=== PATIENT | female | born 1975 | race Caucasian/White ===

== ENCOUNTER → 2024-11-26 | Outpatient (CLI) | payer BC, OTHER, SELFPAY ==
[2024-11-26 11:49] LABS: Basophils # (Auto) 0.1 Thou/mm3 (0.0-0.2); Basophils % (Auto) 1 % (0-2.5); Eosinophils # (Auto) 0.1 Thou/mm3 (0.0-0.5); Eosinophils % (Auto) 1 % (0-10); Hematocrit 39.6 % (36.0-46.0); Hemoglobin 14.1 g/dL (12.0-16.0); Immature Granulocytes % (Auto) 0 % (0-0); Immature Granulocytes Auto 0.03 Thou/mm3 (0.00-0.00); Lymphocytes # (Auto) 2.4 Thou/mm3 (1.0-4.8); Lymphocytes % (Auto) 26 % (10-50); Mean Corpuscular HGB Conc 35.6 g/dl (31.0-37.0); Mean Corpuscular Hemoglobin 31.8 pg (25.0-35.0); Mean Corpuscular Volume 89 fL (80-100); Monocytes # (Auto) 0.5 Thou/mm3 (0.0-0.8); Monocytes % (Auto) 6 % (0-12); Neutrophils # (Auto) 6.2 Thou/mm3 (1.8-7.7); Neutrophils % (Auto) 67 % (37-80); Nucleated Red Blood Cell % 0 /100 WBC (0); Platelet Count 225 Thou/mm3 (140-440); RDW Standard Deviation 40.3 fL (36.4-46.3); Red Blood Count 4.43 Miln/mm3 (4.00-5.20); White Blood Count 9.3 Thou/mm3 (3.6-11.0)
[2024-11-26 12:15] LABS: Alanine Aminotransferase 22 U/L (10-49); Albumin, Serum 4.3 gm/dL (3.5-5.0); Albumin/Globulin Ratio 1.9 (1.2-2.2); Alkaline Phosphatase 55 U/L (46-116); Anion Gap 7 (7-16); Aspartate Amino Transferase 21 U/L (0-34); BUN/Creatinine Ratio 17 Ratio (12-20); Bilirubin,Total 0.9 mg/dL (0.3-1.2); Blood Urea Nitrogen 15 mg/dL (9-23); Calcium 8.9 mg/dL (8.3-10.6); Calcium (Corrected) 8.9 mg/dL (8.5-10.1); Carbon Dioxide 27.9 mMol/L (20.0-31.0); Cardiac Risk Estimate 2.1 RATIO (3.7-5.6); Chloride 102 mMol/L (98-107); Cholesterol 161 mg/dL (132-200); Creatinine (Component) 0.9 mg/dL (0.6-1.3); Free T4 (Free Thyroxine) 1.47 ng/dL (0.89-1.76); Globulin 2.3 gm/dL (2.3-3.5); Glucose 93 mg/dL (74-106); HDL Cholesterol 75 mg/dL (40-60); LDL Cholesterol,Calculated 74 mg/dL (0-130); Osmolality,Calculated 274 (275-295); Potassium 4.7 mMol/L (3.4-5.1); Sodium 137 mMol/L (136-145); Thyroid Stimulating Hormone 2.38 uIU/mL (0.55-4.78); Total Protein 6.6 gm/dL (5.7-8.2); Triglycerides 62 mg/dL (30-150); eGFR > 60 See Note
== END | disposition home or self-care (01) ==
LOC: COPL 10:17
PROVIDERS: PCP Specialist; Referring Provider Specialist; Visit Provider Specialist
DX: E03.9 Hypothyroidism, unspecified (principal)
CPT/HCPCS: 36415; 80053; 80061; 84439; 84443; 85025